=== PATIENT | female | born 1995 | race Caucasian/White ===

== ENCOUNTER → 2021-05-20 | Outpatient (CLI) | payer OTHER | END | disposition home or self-care (01) | LOC: US 13:52 | PROVIDERS: ATTEND Nurse Practitioner Women's Health | DX: O20.9 Hemorrhage in early pregnancy, unspecified (principal); O34.81 Maternal care for other abnormalities of pelvic organs, first trimester; N83.12 Corpus luteum cyst of left ovary; Z3A.01 Less than 8 weeks gestation of pregnancy ==

== ENCOUNTER 2021-07-20 07:23 | Emergency (ER) | payer OTHER ==
[~2021-07-20] VITALS: Ht 162.5 cm; Wt 97.5 kg
[2021-07-20] MEDS ORDERED: AMOXICILLIN500 M3 PO (07:54)
== END 2021-07-20 07:57 | disposition home or self-care (01) ==
LOC: ED 07:23
DX: K04.7 Periapical abscess without sinus (principal); R11.2 Nausea with vomiting, unspecified

== ENCOUNTER 2024-10-03 20:35 | Emergency (ER) | payer MEDICAID ==
[~2024-10-03] VITALS: Ht 162.5 cm; Wt 92.5 kg
[~2024-10-03 20:35] MED LIST: AMOXICILLIN500 M3 PO
[2024-10-03] MEDS ORDERED: PRENATAL GUMMI1 EACH PO (20:47)
[2024-10-03 21:22] LABS: BASO % 0.3 % (0.0-1.0); EOS # 0.1 10*3/uL (0.0-0.4); EOS % 1.1 % (1.0-4.0); HEMATOCRIT 36.7 % (37.0-47.0); MEAN CELL VOLUME 87.2 fl (81.0-99.0); MEAN CORPUSCULAR HGB 29.7 pg (27.0-31.0); MEAN CORPUSCULAR HGB CONC 34.1 g/dl (33.0-37.0); MEAN PLATELET VOLUME 9.8 fl (9.6-12.3); MONO # 0.4 10*3/uL (0.1-1.0); MONO % 3.8 % (3.0-9.0); NEUT # 9.1 10*3/uL (2.3-7.9); NEUT % 77.9 % (47.0-73.0); PLATELET COUNT AUTOMATED 243 10*3/uL (130-400); RED BLOOD COUNT 4.21 10*6/uL (4.10-5.10); RED CELL DISTRI WIDTH 13.5 % (0-14.5); WHITE BLOOD COUNT 11.7 10*3/uL (4.8-10.8)
[2024-10-03 21:43] LABS: ALKALINE PHOSPHATASE 90 U/L (46-116); CHLORIDE 106 mmol/L (98-107); POTASSIUM 3.3 mmol/L (3.4-5.1); SGPT/ALT 26 U/L (5-49); TOTAL PROTEIN 6.7 gm/dL (6.0-8.0)
[2024-10-03 21:46] LABS: BUN < 5 mg/dl (9-23)
[2024-10-03 23:35] LABS: SGPT/ALT 26 U/L (5-49)
[2024-10-03] MEDS ORDERED: POTASSIUM CHLORIDE 20 MEQ TAB PO ONE (23:55)
== END 2024-10-04 00:01 | disposition home or self-care (01) ==
LOC: ED 20:35
PROVIDERS: Emergency Medicine
DX: R07.89 Other chest pain (principal); Z20.822 Contact with and (suspected) exposure to COVID-19; E87.6 Hypokalemia